=== PATIENT | female | born 1995 | race Caucasian/White ===

== ENCOUNTER 2016-03-19 19:28 | Emergency (ER) | payer SELFPAY ==
[~2016-03-19] VITALS: Ht 160 cm; Wt 104.3 kg
[2016-03-19 19:41] VITALS: BP 153/79
--- NOTE | 2016-03-19 20:20 | PHYS DOC ---
Past Medical History Past Medical History: No Pertinent History Past Surgical History: Other Additional Past Surgical Histo: TUMOR REMOVED Alcohol Use: None Drug Use: None Adult General Chief Complaint Chief Complaint: COUGH HPI HPI Patient is a 20 year old female who presents with a cough and sore throat intermittently for two weeks. States she originally felt better late last week and then symptoms wrosened again this weekend. Took Dayquil prior to arrival. Denies fever Review of Systems Review of Systems Constitutional: Denies fever or chills Eyes: Denies change in visual acuity, redness, or eye pain HENT: Nasal congestion and sore throat Respiratory: Denies shortness of breath. Cough Cardiovascular: No additional information not addressed in HPI GI: Denies abdominal pain, nausea, vomiting, bloody stools or diarrhea : Denies dysuria or hematuria Musculoskeletal: Denies back pain or joint pain Integument: Denies rash or skin lesions Neurologic: Denies headache, focal weakness or sensory changes Endocrine: Denies polyuria or polydipsia [] Allergies Allergies Allergies Coded Allergies Type Severity Reaction Last Updated Verified No Known Drug Allergies 09/14/14 No Physical Exam Physical Exam Constitutional: Well developed, well nourished, no acute distress, non-toxic appearance. HENT: Normocephalic, atraumatic, bilateral external ears normal, oropharynx moist, nose normal. Oropharynx erythematous with exudates Eyes: PERRLA, EOMI, conjunctiva normal, no discharge. Neck: Normal range of motion, no tenderness, supple, no stridor. Cardiovascular:Heart rate regular rhythm, no murmur Lungs & Thorax: Bilateral breath sounds clear to auscultation Abdomen: Bowel sounds normal, soft, no tenderness, no masses, no pulsatile masses. Skin: Warm, dry, no erythema, no rash. Back: No tenderness, no CVA tenderness. Extremities: No tenderness, no cyanosis, no clubbing, ROM intact, no edema. Neurologic: Alert and oriented X 3, normal motor function, normal sensory function, no focal deficits noted. Psychologic: Affect normal, judgement normal, mood normal. [] Current Patient Data Vital Signs Vital Signs Date Time Temp Pulse Resp B/P Pulse Ox O2 Delivery O2 Flow Rate FiO2 03/19/16 19:41 98.7 118 18 95 Room Air 98.7 EKG EKG [] Radiology/Procedures Radiology/Procedures [] Impressions: 1. Viral illness Course & Med Decision Making Course & Med Decision Making Pertinent Labs and Imaging studies reviewed. (See chart for details) [] Dragon Disclaimer Dragon Disclaimer This electronic medical record was generated, in whole or in part, using a voice recognition dictation system. Departure Departure Impression: Primary Impression: Viral illness Disposition: HOME, SELF-CARE Condition: STABLE Referrals: NO PCP (PCP) Patient Instructions: Viral Infections, [id number] Additional Instructions: 1. Take medication as prescribed. 2. Return if problems or concerns 3. Follow up with primary in 1-2 days Scripts Benzonatate (Tessalon Perle)100 Mg [id number] Mg PO TID PRN COUGH #20 CAP Prov:ROGER GRULLON APRN 03/19/16 Guaifenesin (Mucinex)600 Mg Tablet.er1 Tab PO BID #14 TAB Prov:ROGER GRULLON APRN 03/19/16 ROGER GRULLON APRN Mar 19, 2016 20:20
[2016-03-19] MEDS ORDERED: GUAI600T38 PO (21:54)
[2016-03-19] MEDS ORDERED: BENZ100C PO (21:54)
[2016-03-20 07:35] LABS: NEGATIVE OBC STREP NEG; POSITIVE OBC STREP POS
== END 2016-03-19 22:00 | disposition home or self-care (01) ==
LOC: ER 19:28
DX: B34.9 Viral infection, unspecified (principal); R05 Cough
CPT/HCPCS: 87070; 87880; 99283

== ENCOUNTER 2017-10-12 23:50 | Emergency (ER) | payer SELFPAY ==
[2017-10-13] MEDS: DEXAMETHASONE SOD PHOS 20 MG/5 ML VIAL. IM (00:32)
[2017-10-13] MEDS: FAMOTIDINE 20 MG TABLET. PO (00:32)
[2017-10-13] MEDS: diphenhydrAMINE HCL 25 MG CAPSULE PO (00:32)
== END 2017-10-13 00:36 | disposition home or self-care (01) ==
LOC: ER 23:50
DX: L25.9 Unspecified contact dermatitis, unspecified cause (principal); Z98.890 Other specified postprocedural states
CPT/HCPCS: 96372; 99283; J1100; Q0163

== ENCOUNTER 2018-12-28 14:02 | Emergency (ER) | payer SELFPAY ==
[~2018-12-28] VITALS: Ht 160 cm; Wt 104.3 kg
[~2018-12-28 14:02] MED LIST: BENZ100C PO; DIPH25CA58 PO; FAMO20TA5 PO; GUAI600T47 PO; PRED-220 PO; TRIA15OI TP
[2018-12-28 15:10] VITALS: BP 156/92
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
== END 2018-12-28 15:47 | disposition home or self-care (01) ==
LOC: ER 14:02
DX: H92.02 Otalgia, left ear (principal); V49.9XXA Car occupant (driver) (passenger) injured in unspecified traffic accident, initial encounter; Y93.89 Activity, other specified; Y92.410 Unspecified street and highway as the place of occurrence of the external cause; Y99.8 Other external cause status
CPT/HCPCS: 99281

== ENCOUNTER 2019-10-05 01:32 | Emergency (ER) | payer SELFPAY ==
[~2019-10-05] VITALS: Ht 160 cm; Wt 109.0 kg
[2019-10-05 01:47] VITALS: BP 160/108
--- NOTE | 2019-10-05 01:54 | PHYS DOC ---
Past Medical History Past Medical History: No Pertinent History Past Surgical History: Other Additional Past Surgical Histo: TUMOR REMOVED Smoking Status: Never Smoker Alcohol Use: Rarely Drug Use: None General Adult EDM: Chief Complaint: FACE PAIN HPI: HPI: Patient is a 23 year old female who just prior to arrival had a fall onto concrete and injured her nose. Patient did not have loss of conscious. Patient states is mechanical fall and did not have syncope prior to the fall. Patient denies any nausea vomiting visual changes. Patient complains of 6 out of 10 throbbing pain to her knee. Review of Systems: Review of Systems: Constitutional: Denies fever or chills Eyes: Denies change in visual acuity HENT: Denies sore throat Respiratory: Denies cough or shortness of breath Cardiovascular: Denies chest pain or edema GI: Denies abdominal pain, nausea, vomiting, or diarrhea : Denies dysuria Musculoskeletal: Denies back pain or joint pain Integument: Denies rash Neurologic: Denies headache or focal weakness Psychiatric: Denies depression or anxiety Heart Score: Risk Factors: Risk Factors: DM, Current or recent (<one month) smoker, HTN, HLP, family history of CAD, obesity. Risk Scores: Score 0 - 3: 2.5% MACE over next 6 weeks - Discharge Home Score 4 - 6: 20.3% MACE over next 6 weeks - Admit for Clinical Observation Score 7 - 10: 72.7% MACE over next 6 weeks - Early Invasive Strategies Current Medications: Current Medications Medications (Trade) Dose Ordered Sig/Winston Start Time Stop Time Status Last Admin Dose Admin Acetaminophen/ Hydrocodone Bitart (Lortab 7.5/325) 1 tab 1X ONCE 10/05/19 02:00 10/05/19 02:01 UNV Allergies: Allergies: Allergies Coded Allergies Type Severity Reaction Last Updated Verified No Known Drug Allergies 09/14/14 No Physical Exam: PE: Constitutional: Well developed, well nourished, no acute distress, non-toxic appearance. HENT: Mild swelling and bruising to the bridge of the nose. No septal hematoma. Oropharynx is clear. No malocclusion Eyes: Conjunctiva clear, EOMI Neck: Normal range of motion, no tenderness, supple, no stridor. Cardiovascular: Regular rate/rhythm, peripheral pulse intact, MOLD CAR PUSHER intact Lungs & Thorax: No respiratory distress Abdomen: No distension Skin: Diffuse: Intact, no rash Back: Full ROM Extremities: Normal inspection, no edema Neurologic: Alert and oriented X 3, normal motor function, , no focal deficits noted. Psychologic: Affect normal, judgement normal, mood normal. EKG: EKG: [] Radiology/Procedures: Radiology/Procedures: [][facility] [address] [place] [address] IMAGING REPORT Signed PATIENT: YASMIN MONTAÑO ACCOUNT: [id number] : 1995 LOCATION: ER AGE: 23 SEX: F EXAM STATUS: REG ER ORD. PHYSICIAN: SATYA MATUTE MD REASON: fall PROCEDURE: NASAL BONES 3+V Nasal bones 3 views: Reason for examination: Fell. There appear to be fractures of the nasal bones with no displacement. Paranasal sinuses are clear. IMPRESSION: Nondisplaced fractures of the nasal bones. Electronically signed by: Ana Simms MD (10/05/2019 3:11 AM) [id number] DICTATED and SIGNED BY: ANA SIMMS MD DATE: 10/05/19310 Course & Med Decision Making: Course & Med Decision Making Pertinent Labs and Imaging studies reviewed. (See chart for details) [] 23-year-old female presents with a ground-level fall. Patient has swelling to her nose. No septal hematoma. X-ray reveals a nasal fracture. Discussed with patient's not blowing the nose ice to the nose and pain meds as needed. Mykel Disclaimer: Mykel Disclaimer: This electronic medical record was generated, in whole or in part, using a voice recognition dictation system. Departure Departure Impression: Primary Impression: Nasal fracture Disposition: 01 HOME, SELF-CARE Condition: STABLE Referrals: NO PCP (PCP) ent 2-3 days Patient Instructions: Nasal Fracture Additional Instructions: EMERGENCY DEPARTMENT GENERAL DISCHARGE INSTRUCTIONS THANK YOU for coming to [facility] Emergency Department (ED) to day and trusting us with your care. We trust that you had a positive experience in our Emergency Department. If you wish to speak to the department Management you can contact the emergency department clinician at . YOUR FOLLOW UP INSTRUCTIONS ARE FOLLOWS: Do you have a private doctor? If you do not have a private doctor, please ask for a resource list of physicians or clinics that may be able to assist you with follow up care. The Emergency Physician has interpreted your x-rays. The X-ray specialist will also review them. If there is a change in the findings you will be notified in 48 hours when at all possible. A lab test or lab culture may have been done, your results will be reviewed and you will be notified if you need a change in treatment. ADDITIONAL INSTRUCTIONS AND INFORMATION Your care today has been supervised by a physician who is specially trained in emergency care. Many problems require more than one evaluation for a complete diagnosis and treatment. We recommend that you schedule your follow up appointment as recommended to ensure complete treatment of your illness or injury. If you are unable to obtain follow up care and continue to have a problem, or if your condition worsens we recommend that you return to the ED. We are not able to safely determine your condition over the phone nor are we able to give sound medical advice over the phone. For these safety reasons, if you call for medical advice we will ask you to come to the ED for further evaluation If you have any questions regarding these discharge instructions please call the ED at . SAFETY INFORMATION In the interest of safety, wellness, and injury prevention; we encourage you to wear your seatbelt, if you smoke; quit smoking, and we encourage your family to use protective helmet for bicycling and other sporting events that present an increased risk for head injury. IF YOUR SYMPTOMS WORSEN OR NEW SYMPTOMS DEVELOP, OR YOU HAVE CONCERNS ABOUT YOUR CONDITION; OR IF YOUR CONDITION WORSENS WHILE YOU ARE WAITING FOR YOUR FOLLOW UP APPOINTMENT; EITHER CONTACT YOUR PRIMARY CARE DOCTOR, THE PHYSICIAN WHOSE NAME AND NUMBER YOU WERE GIVEN, OR RETURN TO THE ED IMMEDIATELY. Scripts Hydrocodone/Apap 5-325 (NORCO 5-325 TABLET) 1 Each Tablet 1-2 EACH PO PRN Q6HRS PRN for PAIN, #12 as needed for pain Prov: SATYA MATUTE MD 10/05/19 Justicifation of Admission Dx: Justifications for Admission: Justification of Admission Dx: N/A SATYA MATUTE MD Oct 05, 2019 01:54
[2019-10-05] MEDS ORDERED: HYDROcodone/APAP 7.5/325MG 1 TAB TABLET PO ONE (02:00)
[2019-10-05] MEDS ORDERED: HYDR-3164 PO (02:15)
--- NOTE | 2019-10-05 03:14 | RAD ---
Nasal bones 3 views: Reason for examination: Fell. There appear to be fractures of the nasal bones with no displacement. Paranasal sinuses are clear. IMPRESSION: Nondisplaced fractures of the nasal bones. Electronically signed by: Ana High MD (10/05/2019 3:11 AM) [id number]
== END 2019-10-05 04:05 | disposition home or self-care (01) ==
LOC: ER 01:32
DX: S02.2XXA Fracture of nasal bones, initial encounter for closed fracture (principal); R60.0 Localized edema; Z98.890 Other specified postprocedural states; W18.39XA Other fall on same level, initial encounter; Y93.89 Activity, other specified; Y92.89 Other specified places as the place of occurrence of the external cause; Y99.8 Other external cause status
CPT/HCPCS: 70160; 99283